=== PATIENT | female | born 1980 | race Caucasian/White ===

== ENCOUNTER 2017-01-08 19:55 | Emergency (ER) | payer BC, MEDICAID ==
[2017-01-08] MEDS ORDERED: NS 1,000 ML IV ONE (20:12)
--- NOTE | 2017-01-08 20:12 | EDPHY ---
H & P HPI/ROS: HPI CHIEF COMPLAINT: Abdominal pain HISTORY OF PRESENT ILLNESS: This patient very pleasant 36-year-old female, she presents emergency room with 10 days of abdominal pain. She reports the pain is located epigastric region. It is rather severe over the last 3 days radiating to her back. She has had nausea with it. And additionally it goes up into her throat reflux. Burning sensation. She denies chest pain or shortness of breath. Denies pleuritic pain. Denies fever. Has nausea but no vomiting. Denies lower abdominal pain. Denies urinary symptoms. She states this all started after coming back to [place]. She went to urgent care today was given Zantac. She took 1 dose and felt worse. Decided come the emergency room is a pain has been pretty persistent over the past 3 days. She denies any black tarry stool. The urgent cares also distally testing H pylori for her. Past Medical History: High triglycerides Past Surgical history: Cholecystectomy, breast reduction Social History: Denies daily use of drugs alcohol tobacco products. Family History: Noncontributory. ROS REVIEW OF SYSTEMS: A comprehensive 10 point review of systems is otherwise negative aside from elements mentioned in the history of present illness. Exam Constitutional appears well nontoxic. triage nursing summary reviewed, vital signs reviewed, awake/alert. Eyes normal conjunctivae and sclera, EOMI, PERRLA. HENT normal inspection, atraumatic, moist mucus membranes, no epistaxis, neck supple/ no meningismus, no raccoon eyes. Respiratory clear to auscultation bilaterally, normal breath sounds, no respiratory distress, no wheezing. Cardiovascular rate normal, regular rhythm, no murmur, no edema, distal pulses normal. Gastrointestinal with very deep palpation in the epigastric region there is pain elicited. There is no guarding or peritoneal signs., no rebound, no guarding, normal bowel sounds, no distension, no pulsatile mass. Genitourinary no CVA tenderness. Musculoskeletal no midline vertebral tenderness, full range of motion, no calf swelling, no tenderness of extremities, no meningismus, good pulses, neurovascularly intact. Skin pink, warm, & dry, no rash, skin atraumatic. Neurologic awake, alert and oriented x 3, AAOx3, moves all 4 extremities equally, motor intact, sensory intact, CN II-XII intact, normal cerebellar, normal vision, normal speech. Psychiatric normal mood/affect. Heme/Lymph/Immune no lymphadenopathy. Differential diagnosis includes but is not limited to and in no particular order : Gastritis, peptic ulcer disease, H pylori Bowel obstruction, appendicitis, , diverticulitis, colitis, enteritis, perforated viscus, gastritis, GERD, esophagitis, urinary tract infection, pyelonephritis, kidney stones Medical Decision Making: Plan for this patient ultrasound right upper quadrant and pancreas, IV Protonix, GI cocktail, IV fluids EKG troponin, abdominal blood work and re-evaluate. Re-evaluation: EKG interpretation by me on record in [employer] system. Impression time of EKG 2030 this is sinus rhythm rate of 61. I do not appreciate acute ischemic changes specifically there is no ST elevation. ST depression or T-wave abnormalities. No prolonged intervals unremarkable EKG. Ultrasound of the right upper quadrant ultrasound The results of the study are this is negative for anything acute. Status post cholecystectomy. I discussed the results of this study with the radiologist Dr. Squires. 2199: I did re-evaluate this patient she is resting comfortably at this time. Re-examination her abdomen is soft nontender there is no guarding or peritoneal signs. She does complain of epigastric abdominal pain worse when she goes to eat or as she is eating. I do feel like most likely this is gastritis versus esophagitis versus ulcer. I will refer her to Gastroenterology. I do recommend she continues take Zantac. Will add Carafate. She understands return emergency room if she has blood in her stool, vomiting, fever worsening abdominal pain. I did go over return precautions. She understands. I do not feel that she needs a CT scan of her abdomen as she is having epigastric discomfort worse after she eats most likely ulcer. Her gallbladder is gone. She has no lower abdominal pain specifically no right lower quadrant or lower abdominal pain on exam. Source: Patient Constitutional: Initial Vital Signs Temperature (C) 36.8 C 01/08/17 20:34 Heart Rate 67 01/08/17 20:34 Respiratory Rate 18 01/08/17 20:34 Blood Pressure 130/82 H 01/08/17 20:34 O2 Sat (%) 96 01/08/17 20:34 O2 Delivery Mode Room Air Allergies/Adverse Reactions: amoxicillin Allergy (Verified 01/08/17 20:45) Penicillins Allergy (Verified 01/08/17 20:45) pen Allergy (Uncoded 01/08/17 20:45) Home Medications: Medication Instructions Recorded Sucralfate [Carafate 1 GM (*)] 1 gm PO ACHS #14 tab 01/08/17 Medical Decision Making - Diagnostics Imaging Results: Imaging Impressions Abdomen Ultrasound 01/08/17 20:13 Impression: Cholecystectomy. I telephoned results to Dr. Merchant at 2135 hours. - Data Points Laboratory Results: Laboratory Results 01/08/17 20:50 01/08/17 20:50 01/08/17 01/08/17 01/08/17 21:45 20:50 20:50 WBC RBC Hgb Hct MCV MCH MCHC RDW Plt Count MPV Neut % (Auto) Lymph % (Auto) Antelope % (Auto) Eos % (Auto) Baso % (Auto) Nucleat RBC Rel Count Absolute Neuts (auto) Absolute Lymphs (auto) Absolute Monos (auto) Absolute Eos (auto) Absolute Basos (auto) Absolute Nucleated RBC Immature Gran % Immature Gran # Sodium 140 mEq/L mEq/L (134-144) Potassium 4.5 mEq/L mEq/L (3.5-5.2) Chloride 101 mEq/L mEq/L (97-110) Carbon Dioxide 24 mEq/l mEq/l (22-31) Anion Gap 15 mEq/L mEq/L (8-16) BUN 8 mg/dL mg/dL (7-23) Creatinine 0.7 mg/dL mg/dL (0.6-1.0) Estimated GFR > 60 Glucose 105 mg/dL H mg/dL (70-100) Calcium 10.4 mg/dL mg/dL (8.5-10.4) Total Bilirubin 0.6 mg/dL mg/dL (0.1-1.4) Conjugated Bilirubin 0.5 mg/dL mg/dL (0.0-0.5) Unconjugated Bilirubin 0.1 mg/dL mg/dL (0.0-1.1) AST 20 IU/L IU/L (14-46) ALT 31 IU/L IU/L (9-52) Alkaline Phosphatase 49 IU/L IU/L (38-126) Troponin I < 0.012 ng/mL ng/mL (0.000-0.034) Total Protein 7.3 g/dL g/dL (6.3-8.2) Albumin 4.5 g/dL g/dL (3.5-5.0) Lipase 142 IU/L IU/L (23-300) Beta HCG, Qual NEGATIVE Urine Color YELLOW Urine Appearance CLEAR Urine pH 7.5 (5.0-7.5) Ur Specific [place] 1.010 (1.002-1.030) Urine Protein NEGATIVE (NEGATIVE) Urine Ketones NEGATIVE (NEGATIVE) Urine Blood NEGATIVE (NEGATIVE) Urine Nitrate NEGATIVE (NEGATIVE) Urine Bilirubin NEGATIVE (NEGATIVE) Urine Urobilinogen 0.2 EU EU (0.2-1.0) Ur Leukocyte Esterase NEGATIVE (NEGATIVE) Urine Glucose NEGATIVE (NEGATIVE) 01/08/17 20:50 WBC 8.83 10^3/uL 10^3/uL (3.80-9.50) RBC 5.06 10^6/uL 10^6/uL (4.18-5.33) Hgb 14.6 g/dL g/dL (12.6-16.3) Hct 44.1 % % (38.0-47.0) MCV 87.2 fL fL (81.5-99.8) MCH 28.9 pg pg (27.9-34.1) MCHC 33.1 g/dL g/dL (32.4-36.7) RDW 14.1 % % (11.5-15.2) Plt Count 387 10^3/uL 10^3/uL (150-400) MPV 9.4 fL fL (8.7-11.7) Neut % (Auto) 66.1 % % (39.3-74.2) Lymph % (Auto) 23.0 % % (15.0-45.0) Antelope % (Auto) 8.0 % % (4.5-13.0) Eos % (Auto) 2.4 % % (0.6-7.6) Baso % (Auto) 0.2 % L % (0.3-1.7) Nucleat RBC Rel Count 0.0 % % (0.0-0.2) Absolute Neuts (auto) 5.83 10^3/uL 10^3/uL (1.70-6.50) Absolute Lymphs (auto) 2.03 10^3/uL 10^3/uL (1.00-3.00) Absolute Monos (auto) 0.71 10^3/uL 10^3/uL (0.30-0.80) Absolute Eos (auto) 0.21 10^3/uL 10^3/uL (0.03-0.40) Absolute Basos (auto) 0.02 10^3/uL 10^3/uL (0.02-0.10) Absolute Nucleated RBC 0.00 10^3/uL 10^3/uL (0-0.01) Immature Gran % 0.3 % % (0.0-1.1) Immature Gran # 0.03 10^3/uL 10^3/uL (0.00-0.10) Sodium Potassium Chloride Carbon Dioxide Anion Gap BUN Creatinine Estimated GFR Glucose Calcium Total Bilirubin Conjugated Bilirubin Unconjugated Bilirubin AST ALT Alkaline Phosphatase Troponin I Total Protein Albumin Lipase Beta HCG, Qual Urine Color Urine Appearance Urine pH Ur Specific [place] Urine Protein Urine Ketones Urine Blood Urine Nitrate Urine Bilirubin Urine Urobilinogen Ur Leukocyte Esterase Urine Glucose Medications Given: Discontinued Medications Al Hydroxide/Mg Hydroxide (Maalox Susp) 30 ml PO ONCE ONE Stop: 01/08/17 20:22 Last Admin: 01/08/17 20:46 Dose: 30 ml Hyoscyamine Sulfate (Levsin, Hyomax-Sl) 0.25 mg PO ONCE ONE Stop: 01/08/17 20:22 Last Admin: 01/08/17 20:46 Dose: 0.25 mg Sodium Chloride (Ns) 1,000 mls @ 0 mls/hr IV EDNOW ONE; Wide Open PRN Reason: Protocol Stop: 01/08/17 20:13 Last Admin: 01/08/17 20:46 Dose: 1,000 mls Lidocaine (Lidocaine 2% Viscous) 15 ml PO ONCE ONE Stop: 01/08/17 20:22 Last Admin: 01/08/17 20:46 Dose: 15 ml Pantoprazole Sodium (Protonix) 40 mg IVP EDNOW ONE Stop: 01/08/17 20:22 Last Admin: 01/08/17 20:47 Dose: 40 mg Departure - Departure Disposition: Home, Routine, Self-Care Clinical Impression: Abdominal pain Qualifiers: Abdominal location: epigastric Qualified Code(s): R10.13 - Epigastric pain Condition: Good Instructions: Acute Abdominal Pain (ED) Additional Instructions: 1. Take her Zantac as prescribed. 2. Return emergency room if develops worsening abdominal pain fever or vomiting. 3. Please additionally called follow up with Gastroenterology. Referrals: NONE *PRIMARY CARE P,. [Primary Care Provider] - As per Instructions Torres Garcia MD [Medical Doctor] - As per Instructions Prescriptions: Sucralfate [Carafate 1 GM (*)] 1 gm PO ACHS #14 tab
[2017-01-08] MEDS ORDERED: LIDOCAINE 2% VISCOUS 15 ML UDCUP PO ONE (20:21)
[2017-01-08] MEDS ORDERED: MAG HYDROX/AL HYDROX/SIMETH 30 ML UDCUP PO ONE (20:21)
[2017-01-08] MEDS ORDERED: PANTOPRAZOLE SODIUM 40 MG VIAL IVP ONE (20:21)
[2017-01-08] MEDS ORDERED: HYOSCYAMINE SULFATE 0.125 MG TAB PO ONE (20:21)
--- NOTE | 2017-01-08 20:33 | CPEKG ---
Heart Rate: 61 RR Interval: 984 P-R Interval: 156 QRSD Interval: 82 QT Interval: 392 QTC Interval: 395 P Drift: 38 QRS Drift: 66 T Wave Drift: 51 EKG Severity - NORMAL ECG - EKG Impression: SINUS RHYTHM Electronically Signed By: Drake Figueredo 11-Jan-2017 19:05:50
[2017-01-08 20:37] VITALS: TEMP 98.2; O2SAT 96
[2017-01-08 20:54] LABS: % IMMATURE GRANULYOCYTES 0.3 % (0.0-1.1); ABSOLUTE IMMATURE GRANULOCYTES 0.03 10^3/uL (0.00-0.10); ADD DIFF? NO; ADD MORPH? NO; ADD SCAN? NO; ATYPICAL LYMPHOCYTE FLAG 0 (0-99); FRAGMENT RBC FLAG 0 (0-99); HEMATOCRIT 44.1 % (38.0-47.0); HEMOGLOBIN 14.6 g/dL (12.6-16.3); LEFT SHIFT FLG 0 (0-99); LIPEMIA HEMOLYSIS FLAG 80 (0-99); MEAN CELL HEMOGLOBIN 28.9 pg (27.9-34.1); MEAN CELL HEMOGLOBIN CONCENTR. 33.1 g/dL (32.4-36.7); MEAN CELL VOLUME 87.2 fL (81.5-99.8); MEAN PLATELET VOLUME 9.4 fL (8.7-11.7); PLATELET CLUMPS FLAG 0 (0-99); PLATELET COUNT 387 10^3/uL (150-400); RED BLOOD CELL COUNT 5.06 10^6/uL (4.18-5.33); RED CELL DISTRIBUTION WIDTH 14.1 % (11.5-15.2)
[2017-01-08 21:07] LABS: ALANINE AMINOTRANSFERASE 31 IU/L (9-52); ALBUMIN 4.5 g/dL (3.5-5.0); ALKALINE PHOSPHATASE 49 IU/L (38-126); ANION GAP 15 mEq/L (8-16); ASPARTATE AMINOTRANSFERASE 20 IU/L (14-46); BILIRUBIN,TOTAL 0.6 mg/dL (0.1-1.4); BILIRUBIN-CONJUGATED 0.5 mg/dL (0.0-0.5); BILIRUBIN-UNCONJUGATED 0.1 mg/dL (0.0-1.1); CALCIUM 10.4 mg/dL (8.5-10.4); CARBON DIOXIDE 24 mEq/l (22-31); CHLORIDE 101 mEq/L (97-110); CREATININE 0.7 mg/dL (0.6-1.0); GLOMERULAR FILTRATION RATE > 60; GLUCOSE 105 mg/dL (70-100); POTASSIUM 4.5 mEq/L (3.5-5.2); SODIUM 140 mEq/L (134-144); TOTAL PROTEIN 7.3 g/dL (6.3-8.2)
[2017-01-08 21:18] LABS: TROPONIN I < 0.012 ng/mL (0.000-0.034)
[2017-01-08 21:53] LABS: COLOR YELLOW; LEUKOCYTE ESTERASE,URINE NEGATIVE (NEGATIVE); NITRITE,URINE NEGATIVE (NEGATIVE); PH,URINE 7.5 (5.0-7.5)
[2017-01-08] MEDS ORDERED: HYDROCOD/APAP 5/325 PREPACK#6 BTL TAKEHOME ONE ×2 (22:22→22:23)
[2017-01-08 22:40] VITALS: BP 124/82; PULSE 64; RESP 14
== END 2017-01-08 22:38 | disposition home or self-care (01) ==
LOC: CED 19:55
DX: R10.13 Epigastric pain (principal); E86.9 Volume depletion, unspecified; Z90.49 Acquired absence of other specified parts of digestive tract
CPT/HCPCS: 76705-PO; 80048-PO; 80076-PO; 81003-PO; 83690-PO; 84484-PO; 84703-PO; 85025-PO; 96374